=== PATIENT | female | born 1950 | race Caucasian/White ===

== ENCOUNTER 2018-11-03 09:02 | Emergency (ER) | payer MEDICARE ==
--- NOTE | 2018-11-03 09:14 | ED.PDOC ---
History of Present Illness - General Chief Complaint: Neuro Symptoms/Deficits Stated Complaint: decreased LOC,Abnormal labs Time Seen by Provider: 11/03/18 09:13 Source: RN/MD, EMS Exam Limitations: clinical condition - no communicative but alert - History of Present Illness Initial Comments: Ursula Orellana 68 y/o female resident at [facility] brought by EMS after she was found to be non communicative this AM by nursing staff.Patient awake,alert but non communicative.Had blood work sent from facility Chem panel showing BUN-99;CR-11 K-6;c02-14;WBC-N;Hgb-9.7 Hct-30.4 Timing/Duration: unknown Severity: moderate Episode Description: see hpi Improving Factors: nothing Worsening Factors: nothing Associated Symptoms: other - see hpi Allergies/Adverse Reactions: Allergies NO KNOWN ALLERGY Allergy (Verified 11/03/18 09:11) Home Medications: Ambulatory Orders Acetaminophen W/ Codeine [Tylenol W/ CODEINE #3] 1 ea PO Q4H PRN 11/03/18 Acetaminophen [Tylenol] 325 mg PO Q4H PRN 11/03/18 Allopurinol 300 mg PO DAILY 11/03/18 Cilostazol 50 mg PO BID 11/03/18 Ferrous Sulfate 325 mg PO BID 11/03/18 Furosemide 40 mg PO DAILY 11/03/18 Gabapentin 600 mg PO TID 11/03/18 Indomethacin 50 mg PO Q12H PRN 11/03/18 Insulin Glargine [Lantus Solostar] 45 unit SC BEDTIME 11/03/18 Levothyroxine Sodium [Synthroid] 75 mcg PO DAILY 11/03/18 Magnesium Chloride-Calcium [Mag-Sr Plus Calcium] 1 tab PO BID 11/03/18 Meclizine HCl [Meclizine 25] 25 mg PO Q6H PRN 11/03/18 Metformin HCl 1,000 mg PO BID 11/03/18 Metoprolol Tartrate 50 mg PO BID 11/03/18 Nitrofurantoin Macrocrystal [Nitrofurantoin Macrocryst] 100 mg PO .[id number] 11/03/18 Ranitidine HCl 300 mg PO DAILY 11/03/18 Tramadol HCl 50 mg PO Q4H PRN 11/03/18 Venlafaxine HCl [Venlafaxine HCl ER] 75 mg PO BEDTIME 11/03/18 Review of Systems - Review of Systems Unable to Obtain Due To: condition - non verbal Past Medical History (General) - Patient Medical History Hx Diabetes: Yes Hx Other PMH: Yes - neuropathy Surgical History: other - ,femoral artery stent right and left-2 years ago,coronary angiogram-3 years ago-no mkajor lesion Family Medical History - Family History Mother Family History: Unknown Living Status: Unknown Hx Cardiac Disease: Yes - multiple family members Hx Family Diabetes: Yes - multiple familky members Physical Exam - Physical Exam General Appearance: Alert, No apparent distress, Other - non verbal Eye Exam: bilateral normal ENT Exam: normal ENT inspection, other - dry oral mucosa Neck: normal inspection, trachea midline Respiratory: normal breath sounds, no respiratory distress Cardiovascular/Chest: normal peripheral pulses, regular rate, rhythm, no murmur, tachycardia Peripheral Pulses: radial,right: 1+, radial,left: 1+ Gastrointestinal/Abdominal: non tender, soft, other - obese Back Exam: no CVA tenderness, no vertebral tenderness Extremities Exam: edema, other - cyanosis toes right foot Mental Status: alert calker Exam: PERRL Motor/Sensory: no motor deficit, no sensory deficit Skin Exam: normal color, warm/dry, other - brownish induration legs Progress - Progress Progress: 11/03/18 12:18 11/03/18 09:15 EKG STAT URINALYSIS Stat 11/03/18 10:05 CARDIAC PANEL,ER Stat HEPATIC FUNCTION PANEL Stat 11/03/18 11:59 Chest,1 View [RAD] Stat 11/03/18 12:11 Calcium Gluconate Inj 2 gm Sodium Chloride 0.9% 100Ml [NS (NACL 0.9%) 100ml] 100 ml IVPB ONCE 11/03/18 12:14 Sodium Chloride 0.9% 500Ml [NS 500ml] 500 ml IVS ONCE Laboratory Results - last 24 hr 11/03/18 11/03/18 11/03/18 09:14 10:00 10:05 WBC 17.6 H RBC 4.10 L Hgb 11.4 L Hct 38.6 MCV 94.2 MCH 27.8 MCHC 29.6 L RDW 16.7 H Plt Count 586 H MPV 7.4 Absolute Neuts (auto) 16.10 H Absolute Lymphs (auto) 1.10 Absolute Monos (auto) 0.30 Absolute Eos (auto) 0.00 Absolute Basos (auto) 0.10 Neutrophils % 91.1 H Lymphocytes % 6.5 L Monocytes % 1.8 L Eosinophils % 0.1 L Basophils % 0.5 PT 17.2 H INR 1.73 H PTT (SP) 26.1 pCO2 14 L* pO2 189 H* HCO3 3.5 ABG pH 7.020 L* ABG O2 Saturation 99.0 ABG Base Excess -26.6 ABG Deoxyhemoglobin 1.0 Oxyhemoglobin % 97.1 Carboxyhemoglobin % 0.0 L Methemoglobin % Sat 1.9 H Calc Total Hemoglobin 10.8 L Potassium BUN 134 H* Creatinine 12.79 H* BUN/Creatinine Ratio 10.5 POC Glucose 105 Random Glucose 129 H Serum Osmolality 305.8 H Lactic Acid Calcium 7.8 L Magnesium 2.8 H Total Bilirubin 0.7 Direct Bilirubin 0.2 Indirect Bilirubin 0.5 AST 29 ALT 18 Alkaline Phosphatase 113 Creatine Kinase 66 CK-MB (CK-2) 7.7 H* Troponin I < 0.02 B-Natriuretic Peptide Serum Total Protein 7.2 Albumin 2.8 L 11/03/18 11/03/18 10:05 10:18 WBC RBC Hgb Hct MCV MCH MCHC RDW Plt Count MPV Absolute Neuts (auto) Absolute Lymphs (auto) Absolute Monos (auto) Absolute Eos (auto) Absolute Basos (auto) Neutrophils % Lymphocytes % Monocytes % Eosinophils % Basophils % PT INR PTT (SP) pCO2 pO2 HCO3 ABG pH ABG O2 Saturation ABG Base Excess ABG Deoxyhemoglobin Oxyhemoglobin % Carboxyhemoglobin % Methemoglobin % Sat Calc Total Hemoglobin Potassium BUN Creatinine BUN/Creatinine Ratio POC Glucose Random Glucose Serum Osmolality Lactic Acid 6.2 H* Calcium Magnesium Total Bilirubin Direct Bilirubin Indirect Bilirubin AST ALT Alkaline Phosphatase Creatine Kinase CK-MB (CK-2) Troponin I B-Natriuretic Peptide 975.0 H* Serum Total Protein Albumin 11/03/18 13:00 Discuss patients condition with family that patient critically and seriously ill with family that she needs to be transferred to major hospital - Results/Orders Results/Orders: Vital Signs - 8 hr 11/03/18 11/03/18 11/03/18 09:12 10:35 11:07 Temperature 95.1 F L Pulse Rate [ 92 H 95 H 81 Left Ulnar] Respiratory 24 28 H 24 Rate Blood Pressure 109/63 91/59 115/54 [Right Arm] O2 Sat by Pulse 93 L 92 L 89 L Oximetry 11/03/18 12:00 Temperature Pulse Rate [ 79 Left Ulnar] Respiratory 17 Rate Blood Pressure 119/88 [Right Arm] O2 Sat by Pulse 92 L Oximetry - EKG/XRAY/CT Comments: HR-158 slightly wide QRS XRAY: chest - cardiomegaly with interstitial infiltrate CT Ordered: Yes - head-no hemorrhage or infarct Procedures - Central Line Right Brachiocephalic vein Central Line Lumen: unsucessful Central Line Procedure Prep: betadine prep, sterile drapes applied, sterile dressing applied Anesthesia: local Complications: unable to get placement Departure - Departure Clinical Impression: Hyperkalemia, PAD (peripheral artery disease) Acute renal failure Qualifiers: Acute renal failure type: unspecified Qualified Code(s): N17.9 - Acute kidney failure, unspecified Diabetes Qualifiers: Diabetes mellitus type: type 2 Diabetes mellitus fpc insulin use: with intermediate project manager use Diabetes mellitus complication status: with circulatory complication Diabetes mellitus complication detail: with other circulatory complications Qualified Code(s): E11.59 - Type 2 diabetes mellitus with other circulatory complications Time of Disposition: 13:04 Disposition: Transfer to Hospital Condition: Serious Departure Forms: Patient Portal Self Enrollment Referrals: Todd Perdomo MD [Active Staff] - 1-2 Weeks Home Medications: Ambulatory Orders Acetaminophen W/ Codeine [Tylenol W/ CODEINE #3] 1 ea PO Q4H PRN 11/03/18 Acetaminophen [Tylenol] 325 mg PO Q4H PRN 11/03/18 Allopurinol 300 mg PO DAILY 11/03/18 Cilostazol 50 mg PO BID 11/03/18 Ferrous Sulfate 325 mg PO BID 11/03/18 Furosemide 40 mg PO DAILY 11/03/18 Gabapentin 600 mg PO TID 11/03/18 Indomethacin 50 mg PO Q12H PRN 11/03/18 Insulin Glargine [Lantus Solostar] 45 unit SC BEDTIME 11/03/18 Levothyroxine Sodium [Synthroid] 75 mcg PO DAILY 11/03/18 Magnesium Chloride-Calcium [Mag-Sr Plus Calcium] 1 tab PO BID 11/03/18 Meclizine HCl [Meclizine 25] 25 mg PO Q6H PRN 11/03/18 Metformin HCl 1,000 mg PO BID 11/03/18 Metoprolol Tartrate 50 mg PO BID 11/03/18 Nitrofurantoin Macrocrystal [Nitrofurantoin Macrocryst] 100 mg PO .[id number] 11/03/18 Ranitidine HCl 300 mg PO DAILY 11/03/18 Tramadol HCl 50 mg PO Q4H PRN 11/03/18 Venlafaxine HCl [Venlafaxine HCl ER] 75 mg PO BEDTIME 11/03/18 Transfer to Outside Facility - Transfer Information Accepting Provider:: Greg Edge Md Accepting Facility: [facility] Reason for Transfer: required specialist not available - principal process engineer,vrt mechanic,lsw,vascular surgeon
[2018-11-03] MEDS ORDERED: SODIUM CHLORIDE 0.9% 500ML 500 ML IVS ONE ×2 (09:15→12:14)
--- NOTE | 2018-11-03 10:55 | RAD ---
EXAM DESCRIPTION: Chest,1 View CLINICAL HISTORY: 68 years Female, altered mental status. COMPARISON: 11/11/2009 IMPRESSION: The heart is enlarged, with mild central pulmonary vascular congestion. Mild perihilar interstitial thickening which may be secondary to CHF with interstitial edema, fibrosis/scarring, or an atypical infectious/inflammatory process. No confluent airspace consolidation, large pleural effusion, or pneumothorax. No acute osseous abnormality. Electronically signed by: Declan Clark MD 11/03/2018 10:51 AM CDT
--- NOTE | 2018-11-03 10:56 | CT ---
EXAM DESCRIPTION: Head CLINICAL HISTORY: 68 years, Female, ams COMPARISON: None TECHNIQUE: Head CT was performed without IV contrast. This exam was performed according to our departmental dose-optimization program, which includes automated exposure control, adjustment of the mA and/or kV according to patient size and/or use of iterative reconstruction technique. FINDINGS: The study is limited by motion artifact. With this in mind, no acute intracranial hemorrhage is identified. No midline shift or other mass effect. The ventricles and basilar cisterns are well maintained. Chronic ischemic changes are present in the periventricular white matter. No cortical infarct or intracranial mass. Soft tissue swelling over the left frontal region without calvarial fracture. Visualized paranasal sinuses and orbits are unremarkable. IMPRESSION: Limited exam due to motion artifact with chronic ischemic microvascular changes. No hemorrhage, infarct or other acute intracranial abnormality. Electronically signed by: Bladimir Oquendo MD 11/03/2018 10:53 AM CDT
[2018-11-03] MEDS ORDERED: LIDOCAINE 1% 10 ML VIAL INJ ONE (11:23)
[2018-11-03] MEDS ORDERED: CHLORHEXIDINE GLUCONATE 4 % 15 ML UD TOP ONE (11:37)
[2018-11-03] MEDS ORDERED: INSULIN, REG.(HUMAN) 100 U/ML VIAL IV ONE (12:10)
[2018-11-03] MEDS ORDERED: CALCIUM GLUCONATE INJ 2 GM in SODIUM CHLORIDE 0.9% 100ML 100 ML IVPB ONE (12:11)
[2018-11-03] MEDS ORDERED: SODIUM BICARBONATE SYRINGE 50 MEQ/50 ML SYG IV ONE ×2 (12:11→12:59)
[2018-11-03] MEDS ORDERED: SODIUM CHLORIDE 0.9% 100ML 100 ML IVPB ONE (12:13)
[2018-11-03] MEDS ORDERED: CALCIUM GLUCONATE INJ 1 GM/10 ML VIAL ONE (12:13)
[2018-11-03] MEDS ORDERED: DEXTROSE 50% 25 GM/50 ML SYG IV ONE (12:14)
--- NOTE | 2018-11-03 12:25 | RAD ---
EXAM DESCRIPTION: Chest,1 View CLINICAL HISTORY: AMS COMPARISON: November 03, 2018 1022 hours IMPRESSION: Single AP portable upright view of the chest shows enlargement of the cardiomediastinal silhouette. Lungs are normally aerated. Mild chronic appearing increased interstitial markings are stable from previous.. No obvious pleural effusion or pneumothorax is seen. Electronically signed by: Main Ramsey MD 11/03/2018 12:22 PM CDT
[2018-11-03] MEDS ORDERED: MEROPENEM 500 MG in SODIUM CHL 0.9% 50ML MIN-BAG+ 50 ML IVPB ONE (12:31)
[2018-11-03] MEDS ORDERED: SODIUM CHL 0.9% 50ML MIN-BAG+ 50 ML IVPB ONE (12:43)
[2018-11-03] MEDS ORDERED: MEROPENEM 500 MG VIAL IVPB ONE (12:43)
[2018-11-03] MEDS ORDERED: EPINEPHrine HCL MULTI-DOSE 5 MG in DEXTROSE 5% 250ML 250 ML IV SCH (13:00)
[2018-11-03 13:17] VITALS: TEMP 95.3
[2018-11-03] MEDS ORDERED: NOREPINEPHRINE BITARTRATE 4 MG/4 ML VIAL IVPB ONE (14:00)
[2018-11-03] MEDS ORDERED: DEXTROSE 5% 250ML 250 ML ONE (14:01)
[2018-11-03] MEDS ORDERED: SODIUM CHLORIDE 0.9% 1000ML 1,000 ML ONE (14:06)
[2018-11-03 14:49] VITALS: BP 62/50; O2SAT 99
== END 2018-11-03 14:49 | disposition short-term general hospital (02) ==
LOC: ER 09:02
DX: N17.9 Acute kidney failure, unspecified (principal); E87.5 Hyperkalemia; E11.51 Type 2 diabetes mellitus with diabetic peripheral angiopathy without gangrene; E11.40 Type 2 diabetes mellitus with diabetic neuropathy, unspecified; Z79.4 Long term (current) use of insulin; Z79.899 Other long term (current) drug therapy; Z95.828 Presence of other vascular implants and grafts
CPT/HCPCS: 36415; 36416; 36600; 70450; 71045; 80048; 80076; 82550; 82553; 82803; 82805; 82948; 83605; 83880; 84484; 85025; 85610; 85730; 93005; J2185; J7030; J7040; J7050; J7060; J7799